=== PATIENT | female | born 1995 | race Caucasian/White ===

== ENCOUNTER 2017-11-04 22:15 | Emergency (ER) | payer OTHER ==
--- NOTE | 2017-11-04 23:15 | ED ---
Chest Pain HPI - General Chief Complaint: Chest Pain Stated Complaint: congestion/heaviness on chest Time Seen by Provider: 11/04/17 22:40 Source: patient Mode of arrival: ambulatory Limitations: no limitations - History of Present Illness Initial Comments: This patient is 22-year-old woman who presents to be evaluated for substernal chest pressure. The patient states that she had just come home from being outside and playing poking him on go. She stated that she was seated at the time and the pain was not exertional. She states that she did have a similar episode days ago that lasted for an hour, and was associated with some anxiety, and that she noted that it went away after she relaxed and watch some [employer] videos. The patient denies any anginal type symptoms, including no dyspnea, diaphoresis, nausea or vomiting, palpitations, lightheadedness or syncope. She states that she does not get the symptoms with her usual exertion. MD Complaint: chest pain -: hour(s) Onset: during rest Pain Location: substernal Pain Radiation: none Severity: mild Quality: heaviness Consistency: constant Improves With: nothing Worsens With: nothing Treatments Prior to Arrival: none - Related Data On Oral Contraceptives: No Home Medications Medication Instructions Recorded Confirmed No Known Home Medications [No 11/04/17 11/04/17 Known Home Medications] Allergies Allergy/AdvReac Type Severity Reaction Status Date / Time No Known Allergies Allergy Verified 11/04/17 22:29 Review of Systems ROS Statement: Those systems with pertinent positive or pertinent negative responses have been documented in the HPI. ROS Other: All systems not noted in ROS Statement are negative. Constitutional: Denies: fever, chills Respiratory: Denies: cough, dyspnea Cardiovascular: Reports: chest pain. Denies: orthopnea, edema, syncope Gastrointestinal: Denies: abdominal pain, nausea, vomiting Genitourinary: Denies: dysuria, hematuria Musculoskeletal: Denies: back pain Skin: Denies: rash Neurological: Denies: headache, weakness, numbness EKG Findings - EKG Results: EKG: interpreted by JANEL BROWN, sinus rhythm (Rate 77 bpm), normal axis, normal QRS, normal ST/T, no acute changes - AK, Pacemaker, Normal: Normal tracing: normal tracing Past Medical History Past Medical History: No Reported History History of Any Multi-Drug Resistant Organisms: None Reported Past Surgical History: No Surgical Hx Reported Past Psychological History: Anxiety Smoking Status: Never smoker Past Alcohol Use History: Occasional Past Drug Use History: None Reported General Exam Limitations: no limitations General appearance: alert, in no apparent distress, anxious Head exam: Present: atraumatic, normocephalic Eye exam: Present: normal appearance. Absent: scleral icterus, conjunctival injection ENT exam: Present: normal oropharynx, mucous membranes moist Neck exam: Present: normal inspection Respiratory exam: Present: normal lung sounds bilaterally. Absent: respiratory distress, wheezes, rales, rhonchi, stridor, chest wall tenderness Cardiovascular Exam: Present: regular rate, normal rhythm, normal heart sounds. Absent: systolic murmur, diastolic murmur, rubs, gallop GI/Abdominal exam: Present: soft. Absent: distended, tenderness, guarding, rebound Extremities exam: Present: normal inspection, normal capillary refill. Absent: pedal edema, calf tenderness Back exam: Present: normal inspection. Absent: CVA tenderness (R), CVA tenderness (L) Neurological exam: Present: alert Skin exam: Present: warm, dry, intact, normal color. Absent: rash Course Vital Signs 11/04/17 11/05/17 22:25 00:35 Temperature 97.7 F 97.8 F Pulse Rate 93 85 Respiratory 17 18 Rate Blood Pressure 130/88 108/59 O2 Sat by Pulse 99 98 Oximetry Disposition Clinical Impression: Chest pain, Anxiety Disposition: HOME SELF-CARE Condition: Good Instructions: Chest Pain (ED), Anxiety (ED) Referrals: Jareth Frank MD [Primary Care Provider] - 1-2 days
--- NOTE | 2017-11-04 23:49 | XR ---
EXAMINATION TYPE: XR chest 2V DATE OF EXAM: 11/04/2017 COMPARISON: NONE HISTORY: Chest pain TECHNIQUE: Frontal and lateral views of the chest are obtained. FINDINGS: Heart and mediastinum are normal. Lungs are clear of infiltrate. Costophrenic angles are c lear. Bony thorax is intact. IMPRESSION: Normal chest.
[2017-11-05 00:37] VITALS: BP 108/59; PULSE 85; RESP 18; TEMP 97.8
== END 2017-11-05 00:37 | disposition home or self-care (01) ==
LOC: EC 22:15
DX: F41.9 Anxiety disorder, unspecified (principal); R07.89 Other chest pain
CPT/HCPCS: 71046; 81025; 93005; 99285

== ENCOUNTER 2019-05-24 18:41 | Emergency (ER) | payer OTHER ==
[2019-05-24 18:57] VITALS: RESP 18
--- NOTE | 2019-05-24 19:39 | XR ---
EXAMINATION TYPE: XR ankle complete RT DATE OF EXAM: 05/24/2019 COMPARISON: NONE HISTORY: Ankle pain TECHNIQUE: 3 views FINDINGS: Ankle mortise is anatomic. I see no fracture nor dislocation. Joint spaces are normal. IMPRESSION: Negative right ankle exam.
--- NOTE | 2019-05-24 19:52 | XR ---
EXAMINATION TYPE: XR foot complete RT DATE OF EXAM: 05/24/2019 COMPARISON: NONE HISTORY: Pain TECHNIQUE: 3 views FINDINGS: Metatarsals are intact. I see no fracture nor dislocation. Joint spaces are normal. IMPRESSION: Negative right foot exam. No fracture.
--- NOTE | 2019-05-24 20:34 | ED ---
General Adult HPI - General Chief complaint: Extremity Injury, Lower Stated complaint: [facility] - foot injury Time Seen by Provider: 05/24/19 19:21 Source: patient, RN notes reviewed, old records reviewed Mode of arrival: ambulatory Limitations: no limitations - History of Present Illness Initial comments: 24-year-old female patient presents to ED with chief complaint of right foot pain. Patient reports that she was working and she dropped a heavy box on her right foot. Patient reports that she has pain with ambulation pain in the third fourth and fifth metatarsal region. Patient denies any other complaints. Patient states that she is not . Systemic: Pt denies fatigue, fever/chills, rash. Pt denies weakness, night sweats, weight loss. Neuro: Pt denies headache, visual disturbances, syncope or pre-syncope. HEENT: Pt denies ocular discharge or irritation, otalgia, rhinorrhea, pharyngitis or notable lymphadenopathy. Cardiopulmonary: Pt denies chest pain, SOB, heart palpitations, dyspnea on exertion. Abdominal/GI: Pt denies abdominal pain, n/v/d. : Pt denies dysuria, burning w/ urination, frequency/urgency. Denies new onset urinary or bowel incontinence. MSK: Pt denies loss of strength or function in extremities. Neuro: Pt denies new onset weakness, paresthesias. - Related Data Home Medications Medication Instructions Recorded Confirmed No Known Home Medications 11/04/17 11/04/17 Allergies Allergy/AdvReac Type Severity Reaction Status Date / Time No Known Allergies Allergy Verified 05/24/19 18:54 Review of Systems ROS Statement: Those systems with pertinent positive or pertinent negative responses have been documented in the HPI. ROS Other: All systems not noted in ROS Statement are negative. Past Medical History Past Medical History: No Reported History History of Any Multi-Drug Resistant Organisms: None Reported Past Surgical History: No Surgical Hx Reported Past Psychological History: Anxiety Smoking Status: Never smoker Past Alcohol Use History: Occasional Past Drug Use History: Marijuana General Exam - General Exam Comments Initial Comments: Constitutional: NAD, AOX3, Pt has pleasant affect. HEENT: NC/AT, trachea midline, neck supple, no lymphadenopathy. Posterior pharynx non erythematous, without exudates. External ears appear normal, without discharge. Mucous membranes moist. Eyes PERRLA, EOM intact. There is no scleral icterus. No pallor noted. Cardiopulmonary: RRR, no murmurs, rubs or gallops, no JVD noted. Lungs CTAB in anterior and posterior hart. No peripheral edema. Abdominal exam: Abdomen soft and non-distended. Abdomen non-tender to palpation in all 4 quadrants. Bowel sounds active in LLQ. No hepatosplenomegaly. No ecchymosis Neuro: CN II-XII grossly intact. No nuchal rigidity. No raccon eyes, no huizar sign, no hemotympanum. No cervical spinal tenderness. MSK: The fourth fifth metatarsal mildly tender to palpation. Lateral foot mild tender palpation. No ecchymoses. Distal pulses intact ankle. Cap refill less than 2 seconds. Ambulatory with antalgic gait. No posterior calf tenderness bilaterally, homans sign negative bilaterally. Posterior tibialis and radial pulse +2 bilaterally. Sensation intact in upper and lower extremities. Full active ROM in upper and lower extremities, 5/5 stregnth. Limitations: no limitations Course Vital Signs 05/24/19 18:54 Temperature 98.5 F Pulse Rate 86 Respiratory 18 Rate Blood Pressure 121/83 O2 Sat by Pulse 98 Oximetry Medical Decision Making - Medical Decision Making 24-year-old female patient presents to ED with chief complaint of right foot pain. Patient reports that she was working and she dropped a heavy box on her right foot. Patient reports that she has pain with ambulation pain in the third fourth and fifth metatarsal region. Patient denies any other complaints. Patient states that she is not . Pt VSS, afebrile. Physical exam displayed: The fourth fifth metatarsal mildly tender to palpation. Lateral foot mild tender palpation. No ecchymoses. Distal pulses intact ankle. Cap refill less than 2 seconds. Ambulatory with antalgic gait. Plain films of the ankle did not display acute process. Patient's living pain with ambulation. Patient discharged with postop walking boot. Please crutches, bear weight and right lower extremity. Patient will follow up with primary care provider and orthopedic consult. Return precautions discussed. Case discussed with Dr. Lucas. Disposition Clinical Impression: Foot pain Disposition: HOME SELF-CARE Condition: Stable Instructions (If sedation given, give patient instructions): Foot Sprain (ED), Foot Contusion (ED) Additional Instructions: Patient to adhere to previously discussed treatment plan and will take medication(s) as directed. Patient to follow up with PCP in 1-2 days. Patient to return to ED if symptoms do not improve. Use crutches, do not bear weight on right lower extremity, follow up with orthopedic consult and primary care physician. Is patient prescribed a controlled substance at d/c from ED?: No Referrals: Jareth Frank MD [Primary Care Provider] - 1-2 days Raj Cm MD [STAFF PHYSICIAN] - 1-2 days
[2019-05-24 20:52] VITALS: BP 116/68; PULSE 82; TEMP 98.4
== END 2019-05-24 20:51 | disposition home or self-care (01) ==
LOC: EC 18:41
DX: M79.671 Pain in right foot (principal); M79.674 Pain in right toe(s); W20.8XXA Other cause of strike by thrown, projected or falling object, initial encounter; Y93.89 Activity, other specified; Y92.69 Other specified industrial and construction area as the place of occurrence of the external cause; Y99.0 Civilian activity done for income or pay
CPT/HCPCS: 99284